=== PATIENT | female | born 1990 | race Two or more races ===

== ENCOUNTER 2020-09-13 20:55 | Emergency (ER) | payer MEDICAID, OTHER ==
[~2020-09-13] VITALS: Ht 165.1 cm; Wt 115.7 kg
[2020-09-14 00:41] VITALS: BP 130/88
== END 2020-09-14 00:55 | disposition home or self-care (01) ==
LOC: ER 20:55
DX: J18.9 Pneumonia, unspecified organism (principal); Z20.822 Contact with and (suspected) exposure to COVID-19
CPT/HCPCS: 36415; 71045; 87426

== ENCOUNTER 2021-10-03 08:21 | Emergency (ER) | payer MEDICAID ==
[~2021-10-03] VITALS: Ht 165.1 cm; Wt 117.0 kg
[2021-10-03 09:07] LABS: Urine Bacteria NONE SEEN /hpf (None Seen); Urine Blood 3+ /uL (Negative); Urine Specific Gravity 1.018 (1.001-1.035); Urine WBC 2479 /hpf (0 - 5); Urine WBC Clumps PRESENT /hpf (None Seen)
[2021-10-03 09:17] VITALS: BP 136/86
[2021-10-03] MEDS ORDERED: ACET-1158 PO (10:15)
[2021-10-03] MEDS ORDERED: SULF800T7 PO (10:15)
== END 2021-10-03 10:21 | disposition home or self-care (01) ==
LOC: ER 08:21
DX: N39.0 Urinary tract infection, site not specified (principal); Z79.899 Other long term (current) drug therapy
CPT/HCPCS: 81001; 81025

== ENCOUNTER 2021-10-04 12:58 | Emergency (ER) | payer MEDICAID ==
[~2021-10-04] VITALS: Ht 165.1 cm; Wt 110.1 kg
[~2021-10-04 12:58] MED LIST: ACET-1158 PO; SULF800T7 PO
[2021-10-04] MEDS ORDERED: SODIUM CHLORIDE 0.9% 1,000 ML IVB ONE (13:30)
[2021-10-04] MEDS ORDERED: cefTRIAXone 1GM/50ML D5W 50 ML IV ONE (13:30)
[2021-10-04] MEDS ORDERED: KETOROLAC TROMETH 30 MG/ML 1ML VIAL IV ONE (13:30)
[2021-10-04 13:55] LABS: Basophils # (auto) 0 10 ^3/uL (0-0.2); Basophils % (auto) 0.3 % (0.0-2.0); Eosinophils # (auto) 0 10 ^3/uL (0-0.8); Eosinophils % (auto) 0.7 % (0.0-7.0); Hematocrit 46.7 % (36.0-46.0); Hemoglobin 15.6 g/dL (12.2-16.2); Lymphocytes # (auto) 1.4 10 ^3/uL (0.4-5.4); Lymphocytes % (auto) 20.1 % (10.0-50.0); Mean Corpuscular Hemoglobin 28.3 pg (28.0-32.0); Mean Corpuscular Hgb Conc. 33.4 g/dL (32.0-36.0); Mean Corpuscular Volume 84.7 fL (80.0-100.0); Monocytes # (auto) 0.5 10 ^3/uL (0-1.3); Monocytes % (auto) 7.7 % (0.0-12.0); Neutrophils % (auto) 71.2 % (37.0-80.0); Nucleated Red Blood Cells % 0.1 %; Red Blood Cells 5.51 10^6/uL (4.0-5.20); Red Cell Distribution Width 13.2 % (11.8-14.3); White Blood Cell 7.1 10^3/uL (4.4-10.8)
[2021-10-04 14:04] LABS: Albumin 4.4 g/dL (3.4-5.0); Calcium 9.7 mg/dL (8.5-10.1); Potassium 4.1 mmol/L (3.5-5.1)
[2021-10-04 14:08] LABS: BUN/Creatinine Ratio 12.2; Bilirubin, Total 0.4 mg/dL (0.2-1.0); Total Protein 8.6 g/dL (6.4-8.2)
[2021-10-04] MEDS ORDERED: cefTRIAXone SOD 1,000 MG VL IM ONE (17:00)
[2021-10-04 17:06] VITALS: BP 111/68
== END 2021-10-04 17:27 | disposition home or self-care (01) ==
LOC: ER 12:58
DX: N39.0 Urinary tract infection, site not specified (principal); Z79.899 Other long term (current) drug therapy
CPT/HCPCS: 36415; 80053; 85025; 96372; 99283; J0696